=== PATIENT | male | born 1990 | race African-American/Black ===

== ENCOUNTER 2017-12-01 11:46 | Emergency (ER) | payer SELFPAY, OTHER ==
[2017-12-01] MEDS: IPRATRPIUM/ALBUTEROL 0.5/2.5MG 3 ML NEBU. NEB ×4 (12:44→13:38)
[2017-12-01] MEDS: methylPREDNISolone SOD SUCC PF 125 MG/2 ML VIAL. IV ×2 (13:33)
[2017-12-01 13:53] LABS: INFLUENZA A PATIENT NEGATIVE (NEGATIVE); INFLUENZA B PATIENT NEGATIVE (NEGATIVE); OBC FLU VALID
== END 2017-12-01 14:48 | disposition home or self-care (01) ==
LOC: ER 11:46
DX: J45.901 Unspecified asthma with (acute) exacerbation (principal)
CPT/HCPCS: 71046; 87804; 87804-59; 94640; 96374; 99285-25; J2930; J7620

== ENCOUNTER 2017-12-10 15:26 | Emergency (ER) | payer SELFPAY ==
[2017-12-10] MEDS: IPRATRPIUM/ALBUTEROL 0.5/2.5MG 3 ML NEBU. NEB ×4 (16:13→17:23)
[2017-12-10] MEDS: predniSONE 20 MG TABLET PO ×2 (17:46)
== END 2017-12-10 18:00 | disposition home or self-care (01) ==
LOC: ER 15:26
DX: J45.901 Unspecified asthma with (acute) exacerbation (principal)
CPT/HCPCS: 94640; 99284-25; J7512; J7620

== ENCOUNTER → 2021-09-08 | Outpatient (CLI) | payer OTHER ==
[2017-12-10 15:27] VITALS: BP 141/89
[~2021-09-08] MED LIST: ALBU2.5V8 INH; IPRA3AMP29 NEB; PRED20TA PO; PRED50TA PO
== END ==
LOC: PF 08:00
PROVIDERS: ATTEND Anesthesiology Pain Medicine
DX: J44.9 Chronic obstructive pulmonary disease, unspecified (principal)
CPT/HCPCS: 94060; 94640; 94729; 94664